=== PATIENT | male | born 1990 | race Caucasian/White ===

== ENCOUNTER 2023-11-28 10:59 | Emergency (ER) | payer OTHER, SELFPAY ==
--- NOTE | 2023-11-28 11:00 | ECG_ITS ---
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
--- NOTE | 2023-11-28 11:00 | XR_ITS ---
The [address] [address] Patient Name: MARCO ANTONIO NIETO MRN: [id number] date: 1990 Sex: M Assigned Patient Location: ER Current Patient Location: ED.MAIN Accession/Order Number: [id number] Exam Date: 11/28/2023 11:18 Report Date: 11/28/2023 11:56 At the request of: LUCIEN MENDES Procedure: XR chest 2V EXAMINATION: XR chest 2V HISTORY: Chest Pain COMPARISON: No relevant comparison available. TECHNIQUE: pa/lat FINDINGS: LUNGS: No significant pulmonary parenchymal abnormalities. VASCULATURE: No increased pulmonary vasculature. PLEURA: No pneumothorax, effusion, or pleural thickening. CARDIAC: No cardiomegaly or cardiac silhouette abnormality. MEDIASTINUM: No visible mass or adenopathy. BONES: No fracture or visible bone lesion. OTHER: Negative. XR/XR chest 2V IMPRESSION: No acute cardiopulmonary process Electronically authenticated by: JULISA LUIS Date: 11/28/2023 11:56
[2023-11-28 11:04] VITALS: BP 146/88; PULSE 56; TEMP 36.6; O2SAT 100; BMI 28.7
--- NOTE | 2023-11-28 11:13 | ED_ITS ---
HPI - Chest Pain General Chief Complaint: Chest Pain Stated Complaint: CHEST DISCOMFORT Time Seen by Provider: 11/28/23 10:59 Source: patient Mode of arrival: walk-in Limitations: no limitations History of Present Illness HPI narrative: Patient presents ED complaining of chest discomfort. Patient reports that it woke him up today from sleep. He reports left-sided chest pain that radiates around into the left side of his back. He does state because a little bit of shortness of breath as well. He is currently at [facility] since yesterday for methamphetamine abuse. He denies cocaine use. He does admit to cannabis use and does smoke cigarettes. He denies a history of hypertension. He denies productive cough. Denies leg pain or swelling. He does report that his father had a heart attack at age 47. He has not had any cardiac workup in the past. He did take his morning medication which included Prozac Seroquel and clonidine. He is alert and oriented in no acute distress. He was sent over for further evaluation of the chest pain. Related Data Home Medications ?Medication ?Instructions ?Recorded ?Confirmed clonidine HCl 0.1 mg tablet 0.1 mg PO DAILY 11/28/23 11/28/23 fluoxetine 40 mg capsule (Prozac) 40 mg PO DAILY 11/28/23 11/28/23 quetiapine 200 mg tablet (Seroquel) 200 mg PO DAILY 11/28/23 11/28/23 Allergies Allergy/AdvReac Type Severity Reaction Status Date / Time amoxicillin AdvReac Mild Hives Verified 11/28/23 11:06 meperidine [From Demerol] AdvReac Mild Hives Verified 11/28/23 11:06 Review of Systems ROS Status of ROS 10 or more systems reviewed and unremark able except as noted in history and below Exam Narrative Exam Narrative: Time Seen: [] Vital Signs: [Per nurse's notes.] General: [Alert] Skin: [Warm, dry, no rash.] Head: [Normocephalic, atraumatic.] Neck: [Supple, trachea midline.] Eye: [Pupils are equal, round and reactive to light, extraocular movements are intact, normal conjunctiva.] Ears, nose, mouth and throat: oral mucosa moist. Cardiovascular: [Regular rate and rhythm, no murmur.] Respiratory: [Lungs are clear to auscultation, respirations are non-labored, breath sounds are equal.] Chest wall: [No tenderness, no deformity.] Gastrointestinal: [Soft, nontender, non distended, normal bowel sounds.] MSK: 5 out of 5 muscle strength x 4 extremities no calf pain or edema Lymphatics: [No lymphadenopathy.] Psychiatric: [Cooperative, appropriate mood & affect.] Neurological: [Alert and oriented to person, place, time, and situation, no focal neurological deficit observed.] Constitutional Vital Signs, click to edit/add: Last Vital Signs Temp 97.9 F 11/28/23 11:04 Pulse 68 11/28/23 12:41 Resp 18 11/28/23 12:41 BP 136/80 11/28/23 12:41 Pulse Ox 100 11/28/23 11:04 O2 Del Method Room Air 11/28/23 11:04 Course Vital Signs Vital signs: Vital Signs Temperature 97.9 F 11/28/23 11:04 Pulse Rate 56 L 11/28/23 11:04 Respiratory Rate 18 11/28/23 11:04 Blood Pressure 146/88 H 11/28/23 11:04 Pulse Oximetry 100 11/28/23 11:04 Oxygen Delivery Method Room Air 11/28/23 11:04 Temperature 97.9 F 11/28/23 11:04 Pulse Rate 68 11/28/23 12:41 Respiratory Rate 18 11/28/23 12:41 Blood Pressure 136/80 11/28/23 12:41 Pulse Oximetry 100 11/28/23 11:04 Oxygen Delivery Method Room Air 11/28/23 11:04 MDM - Chest Pain MDM Narrative Medical decision making narrative: Patient's labs are nonacute including troponin. EKG normal chest x-ray clear. Unclear what the chest pain is from at this time but cardiac workup is negative here. Patient instructed to return if worsening symptoms otherwise follow-up outpatient. Patient comfortable care plan for home ambulated out of the ED in no acute distress. Differential Diagnosis Differential diagnosis: Likely stable angina, unstable angina pectoris, atypical chest pain, st elevation myocardial infarction, costochondritis and chest pain Medical Records Data Attestation: I reviewed the patient's medical records. Lab Data Attestation: I reviewed the patient's lab results. Labs: Lab Results 11/28/23 Range/Units 11:15 WBC 7.5 (4.0-11.0) 10^3/uL RBC 5.42 (4.70-6.10) 10^6/uL Hgb 16.6 (14.0-18.0) g/dL Hct 48.1 (42.0-54.0) % MCV 88.7 (80.0-94.0) fL MCH 30.6 (25.9-34.0) pg MCHC 34.5 (29.9-35.2) g/dL RDW 13.9 (11.0-15.0) % Plt Count 266 (150-450) 10^3/uL MPV 9.3 L (9.5-13.5) fL Neut % (Auto) 53.0 (43.0-75.0) % Lymph % (Auto) 36.7 (20.5-60.0) % Clinton % (Auto) 5.4 (1.7-12.0) % Eos % (Auto) 4.0 (0.9-7.0) % Baso % (Auto) 0.8 (0.2-2.0) % Neut # (Auto) 4.0 (1.4-6.5) 10^3/uL Lymph # (Auto) 2.8 (1.2-3.8) 10^3/uL Clinton # (Auto) 0.4 (0.3-0.8) 10^3/uL Eos # (Auto) 0.3 (0.0-0.7) 10^3/uL Baso # (Auto) 0.1 (0.0-0.1) 10^3/uL Abs Immat Gran (auto) 0.01 (0.00-0.03) 10^3/uL Imm/Tot Granulo (auto) 0.1 (0.0-0.5) % Sodium 136 (136-145) mmol/L Potassium 4.3 (3.5-5.1) mmol/L Chloride 103 (98-107) mmol/L Carbon Dioxide 25.4 (21.0-32.0) mmol/L Anion Gap 11.9 BUN 8.0 (7.0-18.0) mg/dL Creatinine 0.97 (0.70-1.30) mg/dL Est GFR ( Amer) >60 (>=60) Est GFR (Non-Af Amer) >60 (>=60) BUN/Creatinine Ratio 8.2 Glucose 96 (74-106) mg/dL Calcium 9.1 (8.5-10.1) mg/dL Total Bilirubin 0.5 (0.2-1.0) mg/dL AST 25 (15-37) U/L ALT 30 (16-63) U/L Alkaline Phosphatase 94 (46-116) U/L Troponin I High Sens <4.0 L (4.0-76.1) pg/mL Total Protein 7.4 (6.4-8.2) g/dL Albumin 3.8 (3.4-5.0) g/dL Globulin 3.6 g/dL Albumin/Globulin Ratio 1.1 Imaging Data Chest x-ray: Radiologist's impression: ITS Impressions Chest X-Ray 11/28/23 11:00 IMPRESSION: No acute cardiopulmonary process Electronically authenticated by: JULISA LUIS Date: 11/28/2023 11:56 ECG Data Attestation: I personally reviewed and interpreted this ECG as follows: Interpretation: EKG INTERPRETATION Time: [] 1109 Rate: []54 Rhythm: _ []Sinus bradycardia with sinus arrhythmia ST segments: _ []No acute ST elevation or depression T waves: _ [] Ectopy: _ [] P wave/IN interval: _ [] QRS interval: _ [] QT interval: _ [] Comparison: _ [] Comparison EKG date: [] Performed by: [self] Core Measures AMI core measures followed: Yes Smoking Cessation Time spent discussing smoking cessation with patient: 3 to 10 minutes Heart Score History: Slightly/Non-Suspicious ECG: Normal Age: <45 years Risk Factors: 1 or 2 Risk Factors Troponin: <Normal Limit Total Heart Score Recommendations & Risks:: 1 Discharge Plan Discharge Stand Alone Forms: Portal Instructions Chief Complaint: Chest Pain Clinical Impression: Chest pain Patient Disposition: Home, Self-Care Time of Disposition Decision: 12:17 Mode of Transportation: Private Vehicle Prescriptions / Home Meds: No Action fluoxetine [Prozac] 40 mg capsule 40 mg PO DAILY clonidine HCl 0.1 mg tablet 0.1 mg PO DAILY quetiapine [Seroquel] 200 mg tablet 200 mg PO DAILY Print Language: Wolof Instructions: Chest Pain (ED) Referrals: Physician,Non-Staff, MD [Primary Care Provider] - 1 week Discharge Date/Time: 11/28/23 12:42
[2023-11-28 11:14] VITALS: PULSE 67
[2023-11-28] MEDS: ASPIRIN 81 MG TAB.CHEW 324 MG PO (11:16)
[2023-11-28 11:26] LABS: Basophils Absolute Auto 0.1 10^3/uL (0.0-0.1); Basophils Percent Auto 0.8 % (0.2-2.0); Eosinophils Absolute Auto 0.3 10^3/uL (0.0-0.7); Hematocrit 48.1 % (42.0-54.0); Hemoglobin 16.6 g/dL (14.0-18.0); Immature Granulocytes Abs Auto 0.01 10^3/uL (0.00-0.03); Immature Granulocytes Pct Auto 0.1 % (0.0-0.5); Lymphocytes Absolute Auto 2.8 10^3/uL (1.2-3.8); Lymphocytes Percent Auto 36.7 % (20.5-60.0); Mean Corpuscular HGB Conc 34.5 g/dL (29.9-35.2); Mean Corpuscular Hemoglobin 30.6 pg (25.9-34.0); Mean Corpuscular Volume 88.7 fL (80.0-94.0); Mean Platelet Volume 9.3 fL (9.5-13.5); Monocytes Absolute Auto 0.4 10^3/uL (0.3-0.8); Monocytes Percent Auto 5.4 % (1.7-12.0); Platelet Count 266 10^3/uL (150-450); Red Blood Count 5.42 10^6/uL (4.70-6.10); Red Cell Distribution Width 13.9 % (11.0-15.0); White Blood Count 7.5 10^3/uL (4.0-11.0)
[2023-11-28 11:48] LABS: Anion Gap 11.9
[2023-11-28 11:51] LABS: Alanine Aminotransferase 30 U/L (16-63); Albumin Globulin Ratio 1.1; Albumin Level 3.8 g/dL (3.4-5.0); Alkaline Phosphatase 94 U/L (46-116); Aspartate Amino Transferase 25 U/L (15-37); BUN Creatinine Ratio 8.2; Bilirubin Total 0.5 mg/dL (0.2-1.0); Calcium 9.1 mg/dL (8.5-10.1); Carbon Dioxide 25.4 mmol/L (21.0-32.0); Chloride 103 mmol/L (98-107); Estimated GFR (African America >60 (>=60); Estimated GFR (Non-African Ame >60 (>=60); Globulin 3.6 g/dL; Glucose 96 mg/dL (74-106); Potassium 4.3 mmol/L (3.5-5.1); Sodium 136 mmol/L (136-145); Total Protein 7.4 g/dL (6.4-8.2); Troponin I High Sensitivity <4.0 pg/mL (4.0-76.1)
[2023-11-28 12:41] VITALS: BP 136/80; PULSE 68
== END 2023-11-28 12:42 | disposition home or self-care (01) ==
PROVIDERS: Emergency Provider Emergency Medicine
DX: R07.9 Chest pain, unspecified (principal); F15.10 Other stimulant abuse, uncomplicated; F17.210 Nicotine dependence, cigarettes, uncomplicated; Z79.899 Other long term (current) drug therapy; R07.89 Other chest pain; R06.02 Shortness of breath; R42 Dizziness and giddiness; F19.10 Other psychoactive substance abuse, uncomplicated; R11.0 Nausea
CPT/HCPCS: 36415; 71046; 80053; 84484; 85025; 85378; 93005; 96361; 96374; 96375; 99285; J1885

== ENCOUNTER 2023-11-28 19:14 | Emergency (ER) | payer OTHER, SELFPAY ==
[2023-11-28] VITALS (10 sets, daily range): BP systolic 130–150; BP diastolic 68–90; PULSE 52–81; TEMP 37.6; O2SAT 98–100; BMI 28.7
[2023-11-28] MEDS: 0.9 % SODIUM CHLORIDE 1,000 ML 1000 ML IV (19:15)
--- NOTE | 2023-11-28 19:18 | ECG_ITS ---
[facility] Test Date: 2023-11-28 Pat Name: MARCO ANTONIO NIETO Department: Room: - Gender: Male Skills Trainer: : 1990 Requested By: [id number] Order Number: [id number] Reading MD: JAY VIDES Measurements Intervals Murphy Rate: 62 P: 33 ID: [id number] QRS: 58 QRSD: 86 T: 60 QT: 432 QTc: 436 Interpretive Statements 1100 Sinus rhythm 9110 normal ECG Compared to ECG 11/28/2023 11:09:38 Sinus arrhythmia no longer present Electronically Signed On 11-29-2023 6:43:28 EDT by JAY VIDES
--- NOTE | 2023-11-28 19:25 | ED.CHESTPAI1 ---
HPI - Chest Pain General Chief Complaint: Chest Pain Stated Complaint: unknown Time Seen by Provider: 11/28/23 19:16 Source: patient and medical record Mode of arrival: ambulance Limitations: no limitations History of Present Illness HPI narrative: This 33-year old male, smoker with a history of substance abuse who states he has not used methamphetamine since September and is currently at [facility] facility and was seen earlier today for chest pain is return to the emergency department for ongoing chest pain. Pain is on the left side of his chest and radiates into his left arm. He also complains of shortness of breath, he states he feels dizzy and nauseated. He has ongoing abdominal pain and back pain. He denies a history of alcohol use. He has not vomited. He was given aspirin earlier in the day, Zofran and 2 sublingual nitroglycerin by EMS without control of his pain. He has an ongoing chronic cough that he relates to smoking tobacco use. He has been at [facility] since yesterday. He denies that he feels like he is in withdrawal. He does not have a history of heart disease, hypertension or diabetes. Related Data Home Medications ?Medication ?Instructions ?Recorded ?Confirmed clonidine HCl 0.1 mg tablet 0.1 mg PO DAILY 11/28/23 11/28/23 fluoxetine 40 mg capsule (Prozac) 40 mg PO DAILY 11/28/23 11/28/23 quetiapine 200 mg tablet (Seroquel) 200 mg PO DAILY 11/28/23 11/28/23 Allergies Allergy/AdvReac Type Severity Reaction Status Date / Time amoxicillin AdvReac Mild Hives Verified 11/28/23 19:17 meperidine [From Demerol] AdvReac Mild Hives Verified 11/28/23 19:17 Review of Systems ROS Status of ROS 10 or more systems reviewed and unremarkable except as noted in history and below Exam Narrative Exam Narrative: Vital signs and Nursing Notes reviewed: Patient is afebrile with a normal pulse, normal blood pressure, he is not hypoxic with pulse ox of 100% on room air General: Awake, alert, oriented, no acute distress, lying comfortably on the stretcher HEENT: Normocephalic atraumatic, mucous membranes are moist and pink, eyes are clear, normal conjunctiva, vision is grossly intact Neck: Supple, no meningeal signs, no anterior or posterior cervical lymphadenopathy Chest: Lungs are clear to auscultation with good air entry, there is no wheezing rhonchi or rales appreciated no accessory muscle use, patient is speaking in complete sentences. Left anterior chest wall is tender to palpation. CVS: Regular rate and rhythm S1-S2, no murmurs rubs or gallops, pulses are brisk and equal bilaterally ABD: Soft, nondistended, nontender, no rebound guarding or rigidity, bowel sounds are normal, no pulsatile masses appreciated Extremities: Moving all extremities, no lower extremity tenderness or swelling noted, negative Homans' sign, pulses are brisk and equal bilaterally Skin: Normal in appearance without rash,pallor, petechiae or purpura Neuro: No focal deficits Psych: Flat affect, somewhat sarcastic Constitutional Vital Signs, click to edit/add: Last Vital Signs Temp 99.7 F 11/28/23 19:17 Pulse 77 11/28/23 19:17 Resp 14 11/28/23 19:17 BP 140/75 11/28/23 19:17 Pulse Ox 100 11/28/23 19:17 O2 Del Method Room Air 11/28/23 19:17 Course Vital Signs Vital signs: Vital Signs Temperature 99.7 F 11/28/23 19:17 Pulse Rate 77 11/28/23 19:17 Respiratory Rate 14 11/28/23 19:17 Blood Pressure 140/75 11/28/23 19:17 Pulse Oximetry 100 11/28/23 19:17 Oxygen Delivery Method Room Air 11/28/23 19:17 Temperature 99.7 F 11/28/23 19:17 Pulse Rate 77 11/28/23 19:17 Respiratory Rate 14 11/28/23 19:17 Blood Pressure 140/75 11/28/23 19:17 Pulse Oximetry 100 11/28/23 19:17 Oxygen Delivery Method Room Air 11/28/23 19:17 MDM - Chest Pain MDM Narrative Medical decision making narrative: This 33-year-old male was returned to the emergency department after he was seen earlier today for chest pain. He has left-sided chest pain that radiates into his left arm associated with shortness of breath and some nausea. He received aspirin earlier in the day and Zofran by EMS. I reviewed his chart from earlier in the day. His labs were normal. EKG was normal and chest x-ray was normal. He was medicated with Toradol, IV fluids and Pepcid. He has not had any vomiting while in the emergency department. He denies that he feels that he is in withdrawal and states he has not used any methamphetamine since September. He does use marijuana and tobacco products. EKG done upon arrival was a normal sinus rhythm at 62 bpm with no acute changes. I repeated a troponin and added a D-dimer on both of which were normal. I explained this to the patient and he feels comfortable being discharged [facility] Medical Records Data Attestation: I reviewed the patient's medical records. Lab Data Attestation: I reviewed the patient's lab results. Labs: Lab Results 11/28/23 Range/Units 19:25 D-Dimer <0.19 (<=0.59) mg/L FEU Troponin I High Sens <4.0 L (4.0-76.1) pg/mL ECG Data Attestation: I personally reviewed and interpreted this ECG as follows: (EKG interpretation normal sinus rhythm at 62 bpm, normal axis, normal intervals, no acute ST segment elevation or T wave inversion) Heart Score History: Slightly/Non-Suspicious ECG: Normal Age: <45 years Risk Factors: 1 or 2 Risk Factors Troponin: <Normal Limit Total Heart Score Recommendations & Risks:: 1 Discharge Plan Discharge Stand Alone Forms: Portal Instructions Chief Complaint: Chest Pain Clinical Impression: Left-sided chest wall pain Patient Disposition: Home, Self-Care Time of Disposition Decision: 20:31 Condition: Good Prescriptions / Home Meds: No Action fluoxetine [Prozac] 40 mg capsule 40 mg PO DAILY clonidine HCl 0.1 mg tablet 0.1 mg PO DAILY quetiapine [Seroquel] 200 mg tablet 200 mg PO DAILY Print Language: Occitan Instructions: Noncardiac Chest Pain (ED), Chest Wall Pain (ED) Referrals: Physician,Non-Staff, MD [Primary Care Provider] - 1 week
[2023-11-28 20:11] LABS: D Dimer <0.19 mg/L FEU (<=0.59)
[2023-11-28 20:13] LABS: Troponin I High Sensitivity <4.0 pg/mL (4.0-76.1)
[2023-11-28] MEDS: FAMOTIDINE/PF 20 MG/2 ML VIAL IV (20:24)
[2023-11-28] MEDS: KETOROLAC TROMETHAMINE 30 MG/ML VIAL IVP (20:24)
== END 2023-11-28 20:43 | disposition home or self-care (01) ==
PROVIDERS: Emergency Provider Emergency Medicine
DX: R07.89 Other chest pain (principal); R06.02 Shortness of breath; R42 Dizziness and giddiness; Z72.0 Tobacco use; F19.10 Other psychoactive substance abuse, uncomplicated; R11.0 Nausea
CPT/HCPCS: 36415; 84484; 85378; 93005; 96361; 96374; 96375; 99285; J1885